=== PATIENT | female | born 1950 | race Caucasian/White ===

== ENCOUNTER → 2021-03-09 | Outpatient (CLI) | payer MEDICARE ==
[~2021-03-09] MED LIST: CONTRAST GIVEN. MC PRN; IOHEXOL 300 MG/ML 100ML VIAL. IV ONE
[2021-03-09 09:13] LABS: CREATININE 0.8 mg/dL (0.6-1.0); GFR 70.5
--- NOTE | 2021-03-09 10:57 | RAD ---
EXAM: Maxillofacial bone CT without and with contrast. HISTORY: Right facial pain and headaches. TECHNIQUE: Computed tomographic images of the maxillofacial bones were obtained with and without cont rast. *One or more of the following individualized dose reduction techniques were utilized for this examina tion: 1. Automated exposure control. 2. Adjustment of the mA and/or kV according to patient size. 3. Use of iterative reconstruction technique. COMPARISON: None. FINDINGS: There is no evidence of fracture. The paranasal sinuses are clear. The ostiomeatal units ar e patent. There is rightward nasal septal deviation. No dental abscess is seen. The temporomandibular joints are intact. The mastoid air cells are clear. The orbits are unremarkable. There is no suspici ous calvarial lesion. There are degenerative changes involving the cervical spine. This includes disc bulges with endplate osteophytosis and facet and uncovertebral arthropathy at multiple levels. This results in moderate le ft foraminal stenosis at C4-C5. There is calcified atherosclerotic plaque involving the carotid bifur cations. There is associated 50 is 69 percent stenosis involving the proximal right ICA and less than 50 percent stenosis involving the proximal left ICA. There is cerebral volume loss. There is decreased attenuation within the cerebral white matter, likel y due to chronic small vessel disease. No suspicious enhancing lesion is seen. There is a chronic lac unar infarct within the left putamen and caudate nucleus. There is calcified atherosclerotic plaque i nvolving the cavernous internal carotid arteries, resulting in segments of greater than [address] enosis. IMPRESSION: 1. No acute maxillofacial bone finding or evidence of sinusitis. 2. Mild nasal septal deviation. 3. Lateral cerebral white matter changes, likely due to chronic small vessel disease. 4. 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 5. Degenerative change involving the cervical spine, resulting in left foraminal stenosis at C4-C5. 6. Calcified atherosclerotic plaque involving the carotid bifurcations and cavernous internal carotid arteries, resulting in stenosis as described above. Electronically signed by: aJyna Geiger MD (03/09/2021 10:55 AM) [id number]
== END ==
LOC: CT 07:58
PROVIDERS: ATTEND Internal Medicine
DX: J34.2 Deviated nasal septum (principal); R51.9 Headache, unspecified; M47.812 Spondylosis without myelopathy or radiculopathy, cervical region; I65.23 Occlusion and stenosis of bilateral carotid arteries
CPT/HCPCS: 36415; 70488; 82565; Q9967

== ENCOUNTER 2021-06-19 12:31 | Emergency (ER) | payer MEDICARE | END 2021-06-19 15:00 | disposition left against medical advice (07) | LOC: ER 12:31 | DX: R50.9 Fever, unspecified (principal); R05 Cough; R06.02 Shortness of breath; Z53.21 Procedure and treatment not carried out due to patient leaving prior to being seen by health care provider ==